=== PATIENT | male | born 1990 ===

== ENCOUNTER → 2017-11-04 | Outpatient (CLI) | payer OTHER ==
--- NOTE | 2017-11-04 13:06 | DIAGNOSTIC IMAGING REPORT ---
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 Follow-up study in a patient with palpable abnormality of the right scrotum. COMPARISON STUDY: Testicular ultrasound from outside institution 08/21/2017 TECHNIQUE: Real-time, grayscale, and color Doppler sonography of the testes and scrotum is performed. Images are reviewed in the transverse and longitudinal planes. FINDINGS: RIGHT HEMISCROTUM: The right testis measures 4.8 x 2.2 x 3.8 cm. There is an ovoid structure which is isoechoic to adjacent testicular parenchyma along the posterior aspect of the right testicle, 0.6 x 0.3 x 0.6 cm which demonstrates increased through transmission, previously 0.5 x 0.6 x 0.3 cm, likely unchanged considering difference in measurement technique. Additionally, there appears to be mild discontinuity of the adjacent tunica. Normal-appearing arterial inflow is present within the right testicle. The right epididymal head appears normal. Small hydrocele is identified. No varicocele. LEFT HEMISCROTUM: The left testis measures 4.9 x 2.2 x 2.9 cm and the parenchyma appears unremarkable. No intratesticular mass is seen. Normal-appearing arterial inflow is present within the left testicle. The left epididymal head appears normal. Small hydrocele is identified. No varicocele. IMPRESSION: 1. Unchanged ovoid 0.6 cm structure of the right scrotum along the posterior aspect of the right testicle which is isoechoic to adjacent testicular parenchyma. 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 2. Small bilateral hydroceles. The above report was generated using voice recognition software. It may contain grammatical, syntax or spelling errors. Electronically signed by: Christophe Lincoln M.D. 11/04/2017 1:05 PM Dictated Date/Time: 11/04/2017 12:55 PM
== END | disposition home or self-care (01) ==
LOC: C.ULTR 12:23
PROVIDERS: ATTEND Urology
DX: N44.2 Benign cyst of testis (principal); N43.3 Hydrocele, unspecified